=== PATIENT | male | born 1990 | race Caucasian/White ===

== ENCOUNTER 2017-03-02 23:10 | Emergency (ER) | payer OTHER ==
[2017-03-02 23:14] VITALS: BP 143/95; PULSE 105; RESP 20; TEMP 97.5; O2SAT 96
--- NOTE | 2017-03-02 23:20 | EDPHY ---
H & P Stated Complaint: RIGHT SIDE CHIN SWOLLEN TODAY, PAIN AND INCREASING IN SIZE HPI/ROS: HPI CHIEF COMPLAINT: Right Jaw Line, Soft Tissue swelling. HISTORY OF PRESENT ILLNESS: Patient otherwise healthy 27-year-old male, denies having any significant medical history does not take any daily medications he presents emergency room by private vehicle for right lower jaw line soft tissue swelling and discomfort. He denies any dental pain. Denies throat pain. Denies trouble swallowing. He does have a more. He states he has been studying recently and when he gets nervous he picks at his more. He thinks that he may have picked skin and then got an infection. On the right lateral lower jaw line there is soft tissue swelling with induration no significant redness. There is a center hold air that is draining. Clearish yellow drainage. This been present for 24 hr. No fever. Past Medical History: Denies medical history Past Surgical History: Denies surgical history Social History: Denies daily use drugs alcohol tobacco products. Family History: Noncontributory. ROS REVIEW OF SYSTEMS: A comprehensive 10 point review of systems is otherwise negative aside from elements mentioned in the history of present illness. Exam Constitutional triage nursing summary reviewed, vital signs reviewed, awake/ alert. Eyes normal conjunctivae and sclera, EOMI, PERRLA. HENT face: Right lower jaw line there is soft tissue swelling 2 cm x 2 cm area. With a central draining hold. Yellow clear fluid. No suze pus. No significant redness. normal inspection, atraumatic, moist mucus membranes, no epistaxis, neck supple/ no meningismus, no raccoon eyes. Respiratory clear to auscultation bilaterally, normal breath sounds, no respiratory distress, no wheezing. Cardiovascular rate normal, regular rhythm, no murmur, no edema, distal pulses normal. Gastrointestinal soft, non-tender, no rebound, no guarding, normal bowel sounds, no distension, no pulsatile mass. Genitourinary no CVA tenderness. Musculoskeletal no midline vertebral tenderness, full range of motion, no calf swelling, no tenderness of extremities, no meningismus, good pulses, neurovascularly intact. Skin pink, warm, & dry, no rash, skin atraumatic. Neurologic awake, alert and oriented x 3, AAOx3, moves all 4 extremities equally, motor intact, sensory intact, CN II-XII intact, normal cerebellar, normal vision, normal speech. Psychiatric normal mood/affect. Heme/Lymph/Immune no lymphadenopathy. Differential Diagnosis: Includes but is not limited to in a particular order soft tissue swelling, strep infection, MRSA infection, facial cellulitis, facial abscess Medical Decision Making: Plan for this patient warm compresses 3 to 4 times a day, Keflex and Bactrim as prescribed. 1st dose given here in emergency room. Will do a bedside ultrasound to make sure there is not any significant pus pocket. Re-evaluation: 2348: Bedside ultrasound performed by me. US Face: I performed a ultrasound of the right lower jaw line facial lesion. I do not appreciate any pus pocket her abscess. It does show inflammatory changes of the skin consistent with cellulitis. Patient be started on Keflex and Bactrim. 1st dose given in emergency room. Recommend warm compresses. Additionally return precautions given he understands return emergency room if there is worsening pain, swelling questions or concerns. Source: Patient - Personal History Current Tetanus/Diphtheria Vaccine: Yes - Medical/Surgical History Hx Asthma: Yes Hx Chronic Respiratory Disease: No Hx Diabetes: No Hx Cardiac Disease: No Hx Renal Disease: No Hx Cirrhosis: No Hx Alcoholism: No Hx HIV/AIDS: No Hx Splenectomy or Spleen Trauma: No Other PMH: Denies. PCP dr Noland. Tetanus UTD - Social History Smoking Status: Never smoked Constitutional: Initial Vital Signs Temperature (C) 36.4 C 03/02/17 23:12 Heart Rate 105 H 03/02/17 23:12 Respiratory Rate 20 03/02/17 23:12 Blood Pressure 143/95 H 03/02/17 23:12 O2 Sat (%) 96 03/02/17 23:12 O2 Delivery Mode Room Air Allergies/Adverse Reactions: No Known Allergies Allergy (Unverified 03/02/17 23:12) Home Medications: Medication Instructions Recorded Cephalexin [Keflex] 500 mg PO Q6H #28 cap 03/02/17 Sulfamethox/Tmp 800/160 mg 1 tab PO BID@1000,2200 #14 tab 03/02/17 [Bactrim Ds] Departure - Departure Disposition: Home, Routine, Self-Care Clinical Impression: Facial cellulitis Condition: Good Instructions: Cellulitis (ED) Additional Instructions: 1. Take antibiotics as prescribed I recommend taking them with food. 2. Warm compresses 3 to 4 times a day for 20 min. 3. Return to the emergency room if this gets bigger or you develops fever or starts spreading. Referrals: Kenn Noland MD [Primary Care Provider] - As per Instructions Prescriptions: Cephalexin [Keflex] 500 mg PO Q6H #28 cap Sulfamethox/Tmp 800/160 mg [Bactrim Ds] 1 tab PO BID@1000,2200 #14 tab
[2017-03-02] MEDS ORDERED: SULFAMET/TMP DS PREPACK#2 BTL TAKEHOME ONE (23:28)
[2017-03-02] MEDS ORDERED: CEPHALEXIN 500MG PREPACK#4 BTL TAKEHOME ONE (23:28)
[2017-03-02] MEDS ORDERED: SULFAMETHOX/TMP 800/160 MG 1 TAB PO ONE (23:28)
[2017-03-02] MEDS ORDERED: CEPHALEXIN 500 MG CAP PO ONE (23:28)
== END 2017-03-02 23:59 | disposition home or self-care (01) ==
DX: L03.211 Cellulitis of face (principal); J45.909 Unspecified asthma, uncomplicated